=== PATIENT | female | born 1980 | race American Indian/Alaskan Native ===

== ENCOUNTER 2017-01-08 23:24 | Emergency (ER) | payer BC ==
[2017-01-09] MEDS ORDERED: NACL 0.9% 500 ML 500 ML IV ONE (00:01)
[2017-01-09] MEDS ORDERED: TYLENOL PO ONE (00:04)
[2017-01-09 01:07] LABS: Bacteria,Urine 1+ /HPF (Negative); Bilirubin,Urine NEG (Negative); Blood,Urine MOD (Negative); Ketones,Urine NEG (Negative); Leukocyte Esterase,Urine LG (Negative); Mucus,Urine FEW /HPF; Nitrite,Urine POS (Negative)
[2017-01-09 01:28] LABS: Basophils % (Auto) 0.2 % (0.0-1.8); Eosinophils % (Auto) 0.4 % (0.0-4.3); Hematocrit 40.1 % (30.3-42.9); Hemoglobin 13.1 gm/dl (10.1-14.3); Mean Corpuscular HGB Conc 33 % (30-34); Mean Corpuscular Hemoglobin 28 pg (28-32); Mean Corpuscular Volume 86 fl (79-97); Platelet Count 214 K/mm3 (140-440); Red Blood Count 4.68 M/mm3 (3.65-5.03); Red Cell Distribution Width 14.2 % (13.2-15.2); White Blood Count 11.9 K/mm3 (4.5-11.0)
[2017-01-09 01:36] LABS: INR 1.08 (0.87-1.13)
[2017-01-09 01:50] LABS: Alanine Aminotransferase 31 units/L (7-56); Albumin 4.2 g/dL (3.9-5); Alkaline Phosphatase 109 units/L (35-129); Anion Gap 20 mmol/L; Bilirubin,Total 1.5 mg/dL (0.1-1.2); Blood Urea Nitrogen 11 mg/dL (7-17); Calcium 9.5 mg/dL (8.4-10.2); Carbon Dioxide 23 mmol/L (22-30); Chloride 97.8 mmol/L (98-107); Glucose 99 mg/dL (65-100); Potassium 3.4 mmol/L (3.6-5.0); Sodium 137 mmol/L (137-145); Total Protein 8.5 g/dL (6.3-8.2)
[2017-01-09] MEDS ORDERED: NACL 0.9% 1000 ML 2,000 ML IV ONE (06:28)
[2017-01-09] MEDS ORDERED: TORADOL IV ONE (06:28)
[2017-01-09] MEDS ORDERED: LEVAQUIN 750MG/150ML 750 MG/150 ML BAG IV ONE (06:28)
[2017-01-09] MEDS ORDERED: REGLAN IV ONE (06:29)
--- NOTE | 2017-01-09 06:29 | Emergency Department Report ---
ED General Adult HPI - General Chief complaint: Nausea/Vomiting/Diarrhea Stated complaint: LOWER BACK PAIN/FEVER Time Seen by Provider: 01/09/17 06:20 Source: patient, RN notes reviewed Mode of arrival: Ambulatory Limitations: No Limitations - History of Present Illness Initial comments: This is a 36-year-old female. I have evaluated her in the past. Her primary care doctor is Dr. Griggs He presents to the ER with lower back pain which is not associated with trauma, positive fever at home, nausea and vomiting, nonbloody, nonbilious, urinary frequency, urinary urgency. There is no vaginal discharge, there is no vaginal burning, there is no lower abdominal pain. Symptoms have been going on since Saturday. They're worsening. Patient reports decreased with antipyretic medication. -: Gradual Location: back Radiation: non-radiation Severity scale (0 -10): 10 Quality: aching Consistency: intermittent Improves with: medication, rest Associated Symptoms: fever/chills, nausea/vomiting. denies: confusion, chest pain, cough, headaches, loss of appetite, malaise, shortness of breath, syncope , weakness - Related Data Previous Rx's Medication Instructions Recorded Last Taken Type Hydrocodone Bit/Acetaminophen 1 each PO Q8H PRN #20 tablet 06/29/13 Unknown Rx [Lortab 7.5-500 mg] Lisinopril/Hydrochlorothiazide 1 tab PO QDAY #90 tablet 06/29/13 Unknown Rx [Zestoretic 10-12.5 mg] Ketorolac [Toradol] 10 mg PO Q6H PRN #20 tablet 07/18/16 Unknown Rx Ondansetron [Zofran Odt] 4 mg PO QID PRN #20 tab.rapdis 07/18/16 Unknown Rx Ketorolac [Toradol] 10 mg PO Q6H PRN #20 tablet 01/09/17 Unknown Rx Levofloxacin [Levaquin] 750 mg PO QDAY #10 tablet 01/09/17 Unknown Rx Metoclopramide [Reglan] 10 mg PO QID PRN #30 tablet 01/09/17 Unknown Rx oxyCODONE [Roxicodone] 5 mg PO Q6HR PRN #15 tablet 01/09/17 Unknown Rx Allergies Allergy/AdvReac Type Severity Reaction Status Date / Time Penicillins Allergy Swelling Verified 06/29/13 09:24 ED Review of Systems ROS: Stated complaint: LOWER BACK PAIN/FEVER Other details as noted in HPI Constitutional: fever ENT: denies: dental pain, epistaxis Respiratory: denies: cough Cardiovascular: denies: chest pain Gastrointestinal: denies: abdominal pain Genitourinary: dysuria Musculoskeletal: back pain Skin: denies: lesions Neurological: denies: weakness Psychiatric: denies: depression ED Past Medical Hx - Past Medical History Previous Medical History?: Yes Hx Hypertension: Yes Additional medical history: anemia - Surgical History Past Surgical History?: No - Social History Smoking Status: Never Smoker Substance Use Type: None - Medications Home Medications: Home Medications Medication Instructions Recorded Confirmed Last Taken Type Hydrocodone Bit/Acetaminophen 1 each PO Q8H PRN #20 tablet 06/29/13 Unknown Rx [Lortab 7.5-500 mg] Lisinopril/Hydrochlorothiazide 1 tab PO QDAY #90 tablet 06/29/13 Unknown Rx [Zestoretic 10-12.5 mg] Ketorolac [Toradol] 10 mg PO Q6H PRN #20 tablet 07/18/16 Unknown Rx Ondansetron [Zofran Odt] 4 mg PO QID PRN #20 tab.rapdis 07/18/16 Unknown Rx Ketorolac [Toradol] 10 mg PO Q6H PRN #20 tablet 01/09/17 Unknown Rx Levofloxacin [Levaquin] 750 mg PO QDAY #10 tablet 01/09/17 Unknown Rx Metoclopramide [Reglan] 10 mg PO QID PRN #30 tablet 01/09/17 Unknown Rx oxyCODONE [Roxicodone] 5 mg PO Q6HR PRN #15 tablet 01/09/17 Unknown Rx ED Physical Exam - General Limitations: No Limitations General appearance: alert, in no apparent distress - Head Head exam: Present: atraumatic, normocephalic - Eye Eye exam: Present: normal appearance, EOMI. Absent: nystagmus - ENT ENT exam: Present: normal exam, normal orophraynx, mucous membranes moist, normal external ear exam - Neck Neck exam: Present: normal inspection, full ROM. Absent: tenderness, meningismus - Respiratory Respiratory exam: Present: normal lung sounds bilaterally. Absent: respiratory distress, wheezes, rales, rhonchi, stridor, decreased breath sounds - Cardiovascular Cardiovascular Exam: Present: regular rate, normal rhythm, normal heart sounds. Absent: bradycardia, tachycardia, irregular rhythm, systolic murmur, diastolic murmur, rubs, gallop - GI/Abdominal GI/Abdominal exam: Present: soft, normal bowel sounds. Absent: distended, tenderness, guarding, rebound, rigid, pulsatile mass - Extremities Exam Extremities exam: Present: normal inspection, full ROM, normal capillary refill. Absent: tenderness, pedal edema, joint swelling, calf tenderness - Back Exam Back exam: Present: normal inspection, full ROM. Absent: tenderness, CVA tenderness (R), CVA tenderness (L), muscle spasm, paraspinal tenderness, vertebral tenderness - Neurological Exam Neurological exam: Present: alert, oriented X3, normal gait, other (Extraocular movements intact. Tongue midline. No facial droop. Facial sensation intact to light touch in the V1, V2, V3 distribution bilaterally. 5 and 5 strength in 4 extremities.. Sensation is intact to light touch in 4 extremities.). Absent : motor sensory deficit - Psychiatric Psychiatric exam: Present: normal affect, normal mood - Skin Skin exam: Present: warm, dry, intact, normal color. Absent: rash ED Course Vital Signs 01/08/17 01/09/17 01/09/17 23:55 03:33 07:00 Temperature 101.3 F H 99.1 F Pulse Rate 116 H 102 H Respiratory 18 20 20 Rate Blood Pressure 138/94 Blood Pressure 122/82 [Left] O2 Sat by Pulse 100 99 100 Oximetry 01/09/17 01/09/17 07:23 08:51 Temperature 99 F Pulse Rate 86 Respiratory 20 18 Rate Blood Pressure Blood Pressure 114/72 [Left] O2 Sat by Pulse 100 Oximetry - Reevaluation(s) Reevaluation #1: 01/09/17 08:39 Differential diagnosis: Urinary tract infection, pyelonephritis Assessment and plan: 36-year-old female with fever, back pain, irritative urinary symptoms, no significant abdominal tenderness, no CVA tenderness, most likely has mild pyelonephritis. She was resuscitated and treated aggressively in the emergency room, she reports that she feels much improved after fever medicine, pain medicine, IV fluids and antibiotic therapy. Blood cultures are ordered prior to my evaluation, clinically I don't believe the patient is bacteremic given her benign clinical appearance, and I dont believe she requires hospital admission. Under similar note, I don't believe she requires advanced imaging at this time. The patient and I had an extensive discussion about the risks, benefits, alternatives of obtaining CT scan, she does not want a CT scan at a concern for radiation, I have evaluated her in the past, and I think that this concern is valid and appropriate. Given her clinical appearance , improvement, ability to tolerate liquid feeds, resolution of tachycardia, I don't believe she requires emergent imaging at this time. She will be discharged with pain medication, nausea medication, antibiotic therapy. She is reliable, understands when to return, and will follow up with her primary care doctor. 01/09/17 15:05 ED Medical Decision Making - Lab Data Result diagrams: 01/09/17 00:17 01/09/17 00:17 Vital Signs 01/08/17 01/09/17 01/09/17 23:55 03:33 07:00 Temperature 101.3 F H 99.1 F Pulse Rate 116 H 102 H Respiratory 18 20 20 Rate Blood Pressure 138/94 Blood Pressure 122/82 [Left] O2 Sat by Pulse 100 99 100 Oximetry 01/09/17 07:23 Temperature Pulse Rate Respiratory 20 Rate Blood Pressure Blood Pressure [Left] O2 Sat by Pulse Oximetry Lab Results 01/09/17 01/09/17 01/09/17 Range/Units 00:17 00:17 00:17 WBC 11.9 H (4.5-11.0) K/mm3 RBC 4.68 (3.65-5.03) M/mm3 Hgb 13.1 (10.1-14.3) gm/dl Hct 40.1 (30.3-42.9) % MCV 86 (79-97) fl MCH 28 (28-32) pg MCHC 33 (30-34) % RDW 14.2 (13.2-15.2) % Plt Count 214 (140-440) K/mm3 Lymph % (Auto) 6.3 L (13.4-35.0) % [place] % (Auto) 4.9 (0.0-7.3) % Eos % (Auto) 0.4 (0.0-4.3) % Baso % (Auto) 0.2 (0.0-1.8) % Lymph # 0.7 L (1.2-5.4) K/mm3 [place] # 0.6 (0.0-0.8) K/mm3 Eos # 0.1 (0.0-0.4) K/mm3 Baso # 0.0 (0.0-0.1) K/mm3 Seg Neutrophils % 88.2 H (40.0-70.0) % Seg Neutrophils # 10.5 H (1.8-7.7) K/mm3 PT 13.9 (12.2-14.9) Sec. INR 1.08 (0.87-1.13) VBG pH (7.320-7.420) Sodium 137 (137-145) mmol/L Potassium 3.4 L (3.6-5.0) mmol/L Chloride 97.8 L (98-107) mmol/L Carbon Dioxide 23 (22-30) mmol/L Anion Gap 20 mmol/L BUN 11 (7-17) mg/dL Creatinine 1.0 (0.7-1.2) mg/dL Estimated GFR > 60 ml/min BUN/Creatinine Ratio 11.00 % Glucose 99 (65-100) mg/dL Lactic Acid (0.7-2.0) mmol/L Calcium 9.5 (8.4-10.2) mg/dL Total Bilirubin 1.5 H (0.1-1.2) mg/dL AST 20 (5-40) units/L ALT 31 (7-56) units/L Alkaline Phosphatase 109 (35-129) units/L Total Protein 8.5 H (6.3-8.2) g/dL Albumin 4.2 (3.9-5) g/dL Albumin/Globulin Ratio 1.0 % Urine Color (Yellow) Urine Turbidity (Clear) Urine pH (5.0-7.0) Ur Specific [place] (1.003-1.030) Urine Protein (Negative) mg/dL Urine Glucose (UA) (Negative) mg/dL Urine Ketones (Negative) mg/dL Urine Blood (Negative) Urine Nitrite (Negative) Urine Bilirubin (Negative) Urine Urobilinogen (<2.0) mg/dL Ur Leukocyte Esterase (Negative) Urine WBC (Auto) (0.0-6.0) /HPF Urine RBC (Auto) (0.0-6.0) /HPF U Epithel Cells (Auto) (0-13.0) /HPF Urine Bacteria (Auto) (Negative) /HPF Urine Mucus /HPF Urine HCG, Qual (Negative) 01/09/17 01/09/17 01/09/17 Range/Units 00:17 00:17 03:23 WBC (4.5-11.0) K/mm3 RBC (3.65-5.03) M/mm3 Hgb (10.1-14.3) gm/dl Hct (30.3-42.9) % MCV (79-97) fl MCH (28-32) pg MCHC (30-34) % RDW (13.2-15.2) % Plt Count (140-440) K/mm3 Lymph % (Auto) (13.4-35.0) % [place] % (Auto) (0.0-7.3) % Eos % (Auto) (0.0-4.3) % Baso % (Auto) (0.0-1.8) % Lymph # (1.2-5.4) K/mm3 [place] # (0.0-0.8) K/mm3 Eos # (0.0-0.4) K/mm3 Baso # (0.0-0.1) K/mm3 Seg Neutrophils % (40.0-70.0) % Seg Neutrophils # (1.8-7.7) K/mm3 PT (12.2-14.9) Sec. INR (0.87-1.13) VBG pH 7.333 (7.320-7.420) Sodium (137-145) mmol/L Potassium (3.6-5.0) mmol/L Chloride (98-107) mmol/L Carbon Dioxide (22-30) mmol/L Anion Gap mmol/L BUN (7-17) mg/dL Creatinine (0.7-1.2) mg/dL Estimated GFR ml/min BUN/Creatinine Ratio % Glucose (65-100) mg/dL Lactic Acid 1.3 0.8 (0.7-2.0) mmol/L Calcium (8.4-10.2) mg/dL Total Bilirubin (0.1-1.2) mg/dL AST (5-40) units/L ALT (7-56) units/L Alkaline Phosphatase (35-129) units/L Total Protein (6.3-8.2) g/dL Albumin (3.9-5) g/dL Albumin/Globulin Ratio % Urine Color (Yellow) Urine Turbidity (Clear) Urine pH (5.0-7.0) Ur Specific [place] (1.003-1.030) Urine Protein (Negative) mg/dL Urine Glucose (UA) (Negative) mg/dL Urine Ketones (Negative) mg/dL Urine Blood (Negative) Urine Nitrite (Negative) Urine Bilirubin (Negative) Urine Urobilinogen (<2.0) mg/dL Ur Leukocyte Esterase (Negative) Urine WBC (Auto) (0.0-6.0) /HPF Urine RBC (Auto) (0.0-6.0) /HPF U Epithel Cells (Auto) (0-13.0) /HPF Urine Bacteria (Auto) (Negative) /HPF Urine Mucus /HPF Urine HCG, Qual (Negative) 01/09/17 Range/Units Unknown WBC (4.5-11.0) K/mm3 RBC (3.65-5.03) M/mm3 Hgb (10.1-14.3) gm/dl Hct (30.3-42.9) % MCV (79-97) fl MCH (28-32) pg MCHC (30-34) % RDW (13.2-15.2) % Plt Count (140-440) K/mm3 Lymph % (Auto) (13.4-35.0) % [place] % (Auto) (0.0-7.3) % Eos % (Auto) (0.0-4.3) % Baso % (Auto) (0.0-1.8) % Lymph # (1.2-5.4) K/mm3 [place] # (0.0-0.8) K/mm3 Eos # (0.0-0.4) K/mm3 Baso # (0.0-0.1) K/mm3 Seg Neutrophils % (40.0-70.0) % Seg Neutrophils # (1.8-7.7) K/mm3 PT (12.2-14.9) Sec. INR (0.87-1.13) VBG pH (7.320-7.420) Sodium (137-145) mmol/L Potassium (3.6-5.0) mmol/L Chloride (98-107) mmol/L Carbon Dioxide (22-30) mmol/L Anion Gap mmol/L BUN (7-17) mg/dL Creatinine (0.7-1.2) mg/dL Estimated GFR ml/min BUN/Creatinine Ratio % Glucose (65-100) mg/dL Lactic Acid (0.7-2.0) mmol/L Calcium (8.4-10.2) mg/dL Total Bilirubin (0.1-1.2) mg/dL AST (5-40) units/L ALT (7-56) units/L Alkaline Phosphatase (35-129) units/L Total Protein (6.3-8.2) g/dL Albumin (3.9-5) g/dL Albumin/Globulin Ratio % Urine Color Yellow (Yellow) Urine Turbidity Slightly-cloudy (Clear) Urine pH 5.0 (5.0-7.0) Ur Specific [place] 1.016 (1.003-1.030) Urine Protein 100 mg/dl (Negative) mg/dL Urine Glucose (UA) Neg (Negative) mg/dL Urine Ketones Neg (Negative) mg/dL Urine Blood Mod (Negative) Urine Nitrite Pos (Negative) Urine Bilirubin Neg (Negative) Urine Urobilinogen 4.0 (<2.0) mg/dL Ur Leukocyte Esterase Lg (Negative) Urine WBC (Auto) 139.0 H (0.0-6.0) /HPF Urine RBC (Auto) 12.0 (0.0-6.0) /HPF U Epithel Cells (Auto) 1.0 (0-13.0) /HPF Urine Bacteria (Auto) 1+ (Negative) /HPF Urine Mucus Few /HPF Urine HCG, Qual Negative (Negative) - EKG Data 01/09/17 08:41 sinus tachycardia, 111 beats for minute, normal intervals, normal axis, not consistent with STEMI, there is no prior EKG available for comparison. - Radiology Data Radiology results: report reviewed, image reviewed X-ray the chest is negative for acute disease Critical care attestation.: If time is entered above; I have spent that time in minutes in the direct care of this critically ill patient, excluding procedure time. ED Disposition Clinical Impression: Pyelonephritis Disposition: DISCHARGED TO HOME OR SELFCARE Is pt being admited?: No Does the pt Need Aspirin: No Condition: Stable Instructions: Acute Pyelonephritis (ED) Additional Instructions: Dictated antibiotic therapy, pain medication, nausea medication, antibiotics as directed. Do not consume alcohol, or operate motor vehicles, or make important decisions. Follow-up with her primary care doctor within the next 3-5 days for recheck. Cultures were sent today, results will be available in the next 3-5 days. Have a primary care doctor contact the medical records department to obtain culture results. Return to the ER right away with new pain, worsened pain, migration of pain, fevers or chills, intractable nausea or vomiting, inability to tolerate liquid feeds, new, worsening or different symptoms. Prescriptions: Ketorolac [Toradol] 10 mg PO Q6H PRN #20 tablet PRN Reason: Pain Levofloxacin [Levaquin] 750 mg PO QDAY #10 tablet Metoclopramide [Reglan] 10 mg PO QID PRN #30 tablet PRN Reason: Nausea oxyCODONE [Roxicodone] 5 mg PO Q6HR PRN #15 tablet PRN Reason: Pain Referrals: PRIMARY MD ELIANA [Primary Care Provider] - 3-5 Days JAIME SIMPSON MD [Staff Physician] - 3-5 Days
--- NOTE | 2017-01-09 08:12 | XRay Report ---
AP CHEST :01/09/17 CLINICAL: Sepsis. COMPARISON:None. FINDINGS: Normal heart and pulmonary vasculature. The lungs are normally expanded and clear. The bones and soft tissues are normal. IMPRESSION: Normal chest.
[2017-01-09 08:52] VITALS: BP 114/72
== END 2017-01-09 09:00 | disposition home or self-care (01) ==
LOC: ED 23:24
DX: N12 Tubulo-interstitial nephritis, not specified as acute or chronic (principal); I10 Essential (primary) hypertension; Z88.0 Allergy status to penicillin
CPT/HCPCS: 36415; 71010; 80053; 81001; 81025; 82140; 82805; 85025; 85610; 87040; 87086; 93005; 93010; 96365; 96375; 99284; J1885; J1956; J2765; J7030